=== PATIENT | male | born 1950 | race Caucasian/White ===

== ENCOUNTER 2017-05-14 10:13 | Inpatient (IN) | payer MEDICARE, BC ==
[~2017-05-14] VITALS: Ht 177.8 cm; Wt 119.1 kg
[2017-05-14] VITALS (9 sets, daily range): BP systolic 112–156; BP diastolic 58–86; PULSE 79–100; RESP 12–22; TEMP 96.5–98.4; O2SAT 94–99
[~2017-05-14 10:13] MED LIST: ASPI325T PO; CELE200 PO; CLOP75 PO; GLIM4TAB PO; HYZA100T2 PO; JANU50TA9 PO; METO25 PO; VYTO10TA35 PO
[2017-05-14] MEDS ORDERED: SODIUM CHLORIDE 0.9% FLUSH 10 ML FLUSH IVF PRN (10:45)
[2017-05-14] MEDS ORDERED: PANTOPRAZOLE SODIUM 40 MG VIAL IVP ONE (10:45)
--- NOTE | 2017-05-14 10:52 | PD ---
HPI Chief Complaint: Bleeding Time Seen by Provider: 10:50 Travel History International Travel<30 days: No Contact w/Intl Traveler<30days: No Traveled to known affect area: No History of Present Illness HPI 66-year-old male with history of GI bleeding, sees Dr. Vicente, anemia, presents to the ER today sent in by his physicians at the [place] because his hemoglobin was 5 today. He has been having dyspnea on exertion and general weakness. He has been having black stools. He denies any vomiting, or other symptoms. Modifying Factors: None Associated Signs & Symptoms: GI bleed, anemia Risk Factors: Anemia PFSH Past Medical History Blood Disorders: No Heart Rhythm Problems: No Cancer: No Cardiovascular Problems: Yes Chest Pain: Yes Congestive Heart Failure: No Diabetes: Yes Endocrine: Yes Genitourinary: No Immune Disorder: No Musculoskeletal: No Neurologic: No Psychiatric: No Reproductive: No Respiratory: No Thyroid Disease: No ?: Not Social History Tobacco Use: No Substance Use: No Allergies-Medications (Allergen,Severity, Reaction): Coded Allergies: acetaminophen (Unverified Allergy, Unknown, 01/25/17) aspirin (Unverified Allergy, Unknown, 01/25/17) blue dye (Unverified Allergy, Unknown, 01/25/17) latex (Unverified Allergy, Unknown, 01/25/17) oxycodone (Unverified Allergy, Unknown, 01/25/17) Uncoded Allergies: CHESTNUTS (Allergy, Unknown, 01/06/11) Reported Meds & Prescriptions Reported Meds & Active Scripts Active Reported Cymbalta DR (Duloxetine HCl) 60 Mg Capdr 60 Mg PO DAILY Aspirin 81 Mg Chew 81 Mg CHEW DAILY Losartan-Hydrochlorothiazide 100-12.5 Mg Tab 1 Tab PO DAILY Vytorin (Ezetimibe-Simvastatin) 10-40 Mg Tab 1 Tab PO HS Metoprolol Tartrate 25 Mg Tab 25 Mg PO BID Celebrex (Celecoxib) 200 Mg Cap 200 Mg PO DAILY Glimepiride 4 Mg Tab 6 Mg PO DAILY Take with breakfast or first main meal Janumet (Sitagliptin-Metformin) 50-1,000 Mg Tab 1 Tab PO BID Review of Systems Except as stated in HPI: all other systems reviewed are Neg Physical Exam Narrative GENERAL: Well-developed elderly white male patient currently in mild distress. Awake and oriented 3. SKIN: Focused skin assessment warm/dry. HEAD: Atraumatic. Normocephalic. EYES: Pupils equal and round. No scleral icterus. No injection or drainage. ENT: No nasal bleeding or discharge. Mucous membranes pink and moist. NECK: Trachea midline. No JVD. CARDIOVASCULAR: Regular rate and rhythm. No murmur appreciated. RESPIRATORY: No accessory muscle use. Clear to auscultation. Breath sounds equal bilaterally. RECTAL EXAM: No masses or tenderness, stool is dark. Hemoccult positive. GASTROINTESTINAL: Abdomen soft, non-tender, nondistended. Hepatic and splenic margins not palpable. MUSCULOSKELETAL: No obvious deformities. No clubbing. No cyanosis. No edema. NEUROLOGICAL: Awake and alert. No obvious cranial nerve deficits. Motor grossly within normal limits. Normal speech. PSYCHIATRIC: Appropriate mood and affect; insight and judgment normal. Data Data Last Documented VS Vital Signs Date Time Temp Pulse Resp B/P (MAP) Pulse Ox O2 Delivery O2 Flow Rate FiO2 05/14/17 10:40 98 Room Air 05/14/17 10:31 98.3 81 22 120/71 (87) Orders Orders Complete Blood Count With Diff (05/14/17 10:42) Prothrombin Time / Inr (Pt) (05/14/17 10:42) Act Partial Throm Time (Ptt) (05/14/17 10:42) Type And Screen (05/14/17 10:42) Comprehensive Metabolic Panel (05/14/17 10:45) Ecg Monitoring (05/14/17 10:45) Iv Access Insert/Monitor (05/14/17 10:45) Oximetry (05/14/17 10:45) Pantoprazole Inj (Protonix Inj) (05/14/17 10:45) Sodium Chloride 0.9% Flush (Ns Flush) (05/14/17 10:45) Red Blood Cells (Rbc) (05/14/17 11:25) Blood Product Administration (05/14/17 11:25) Sodium Chlor 0.9% 250 Ml Inj (Ns 250 Ml (05/14/17 11:30) Admit Order (Ed Use Only) (05/14/17 12:44) Labs Laboratory Tests Test 05/14/17 11:00 White Blood Count 3.4 TH/MM3 Red Blood Count 2.17 MIL/MM3 Hemoglobin 5.1 GM/DL Hematocrit 16.5 % Mean Corpuscular Volume 75.8 FL Mean Corpuscular Hemoglobin 23.4 PG Mean Corpuscular Hemoglobin Concent 30.9 % Red Cell Distribution Width 23.7 % Platelet Count 83 TH/MM3 Mean Platelet Volume 8.6 FL Neutrophils (%) (Auto) 62.2 % Lymphocytes (%) (Auto) 25.3 % Monocytes (%) (Auto) 8.3 % Eosinophils (%) (Auto) 2.9 % Basophils (%) (Auto) 1.3 % Neutrophils # (Auto) 2.1 TH/MM3 Lymphocytes # (Auto) 0.9 TH/MM3 Monocytes # (Auto) 0.3 TH/MM3 Eosinophils # (Auto) 0.1 TH/MM3 Basophils # (Auto) 0.0 TH/MM3 CBC Comment AUTO DIFF Differential Comment AUTO DIFF CONFIRMED Platelet Estimate LOW Platelet Morphology Comment NORMAL Prothrombin Time 11.1 SEC Prothromb Time International Ratio 1.1 RATIO Activated Partial Thromboplast Time 21.9 SEC Blood Urea Nitrogen 29 MG/DL Creatinine 1.41 MG/DL Random Glucose 347 MG/DL Total Protein 7.0 GM/DL Albumin 3.5 GM/DL Calcium Level 8.6 MG/DL Alkaline Phosphatase 99 U/L Aspartate Amino Transf (AST/SGOT) 16 U/L Alanine Aminotransferase (ALT/SGPT) 18 U/L Total Bilirubin 0.5 MG/DL Sodium Level 142 MEQ/L Potassium Level 4.0 MEQ/L Chloride Level 107 MEQ/L Carbon Dioxide Level 26.1 MEQ/L Anion Gap 9 MEQ/L Estimat Glomerular Filtration Rate 50 ML/MIN MDM Medical Decision Making Medical Screen Exam Complete: Yes Emergency Medical Condition: Yes Medical Record Reviewed: Yes Interpretation(s) Laboratory Tests Test 05/14/17 11:00 White Blood Count 3.4 TH/MM3 (4.0-11.0) Red Blood Count 2.17 MIL/MM3 (4.50-5.90) Hemoglobin 5.1 GM/DL (13.0-17.0) Hematocrit 16.5 % (39.0-51.0) Mean Corpuscular Volume 75.8 FL (80.0-100.0) Mean Corpuscular Hemoglobin 23.4 PG (27.0-34.0) Mean Corpuscular Hemoglobin Concent 30.9 % (32.0-36.0) Red Cell Distribution Width 23.7 % (11.6-17.2) Platelet Count 83 TH/MM3 (150-450) Monocytes (%) (Auto) 8.3 % (0.0-8.0) Lymphocytes # (Auto) 0.9 TH/MM3 (1.0-4.8) Platelet Estimate LOW (NORMAL) Activated Partial Thromboplast Time 21.9 SEC (24.3-30.1) Blood Urea Nitrogen 29 MG/DL (7-18) Creatinine 1.41 MG/DL (0.60-1.30) Random Glucose 347 MG/DL (74-106) Estimat Glomerular Filtration Rate 50 ML/MIN (>89) Differential Diagnosis GI bleed/severe anemia Narrative Course Lab work shows significant anemia and 2 units of PRBCs been ordered for the patient. Protonix has been ordered for the patient to the patient is Hemoccult positive, suspected GI bleeding. Case is discussed with Dr. Cardenas for admission. HemaPrompt Point of Care Internal Pos. & Neg. Controls: Passed Fecal Specimen Occult Blood: Positive Diagnosis Primary Impression: GI bleed Additional Impression: Anemia Admitting Information Admitting Physician Requests: Admit Moon Vasquez MD May 14, 2017 10:52
[2017-05-14] MEDS ORDERED: VYTO10TA9 PO (11:14)
[2017-05-14] MEDS ORDERED: ASPI-516 CHEW (11:14)
[2017-05-14] MEDS ORDERED: CYMB60CA PO (11:14)
[2017-05-14] MEDS ORDERED: GLIM4TAB PO (11:14)
[2017-05-14] MEDS ORDERED: METO25TA3 PO (11:14)
[2017-05-14] MEDS ORDERED: CELE200C PO (11:14)
[2017-05-14] MEDS ORDERED: LOSA100T3 PO (11:14)
[2017-05-14] MEDS ORDERED: JANU50TA8 PO (11:14)
[2017-05-14 11:18] LABS: AUTOMATED NEUTROPHIL # 2.1 TH/MM3 (1.8-7.7); BASOPHIL % 1.3 % (0.0-2.0); EOSINOPHIL # 0.1 TH/MM3 (0-0.4); EOSINOPHIL % 2.9 % (0.0-4.0); LYMPH % 25.3 % (9.0-44.0); LYMPHOCYTE # 0.9 TH/MM3 (1.0-4.8); MEAN CELL VOLUME 75.8 FL (80.0-100.0); MEAN CORPUSCULAR HEMOGLOBIN 23.4 PG (27.0-34.0); MEAN CORPUSCULAR HGB CONC 30.9 % (32.0-36.0); MONO % 8.3 % (0.0-8.0); NEUT % 62.2 % (16.0-70.0); PLATELET COUNT 83 TH/MM3 (150-450); RED BLOOD COUNT 2.17 MIL/MM3 (4.50-5.90); RED CELL DISTRIBUTION WIDTH 23.7 % (11.6-17.2); WHITE BLOOD COUNT 3.4 TH/MM3 (4.0-11.0)
[2017-05-14 11:20] LABS: HEMO FLAGS AUTO DIFF
[2017-05-14 11:23] LABS: APTT (PATIENT) 21.9 SEC (24.3-30.1); INTERNATIONAL NORMALIZED RATIO 1.1 RATIO; PROTHROMBIN TIME - PATIENT 11.1 SEC (9.8-11.6)
[2017-05-14 11:24] LABS: HEMATOCRIT 16.5 % (39.0-51.0)
[2017-05-14] MEDS ORDERED: SODIUM CHLOR 0.9% 250 ML INJ 250 ML IV ONE (11:30)
[2017-05-14 11:44] LABS: ANION GAP 9 MEQ/L (5-15); AST (GOT) 16 U/L (15-37); BICARBONATE 26.1 MEQ/L (21.0-32.0); BLOOD UREA NITROGEN 29 MG/DL (7-18); CHLORIDE 107 MEQ/L (98-107); GLOMERULAR FILTRATION RATE 50 ML/MIN (>89); SODIUM (NA) 142 MEQ/L (136-145)
[2017-05-14 11:45] LABS: ALT (GPT) 18 U/L (12-78)
[2017-05-14 11:47] LABS: ALKALINE PHOSPHATASE 99 U/L (45-117); TOTAL BILIRUBIN ADULT 0.5 MG/DL (0.2-1.0)
[2017-05-14 11:51] LABS: PLATELET ESTIMATE SMEAR LOW (NORMAL); PLATELET MORPHOLOGY NORMAL (NORMAL); SCAN/DIFF AUTO DIFF CONFIRMED
[2017-05-14] MEDS ORDERED: SODIUM CHLOR 0.9% 1000 ML INJ 1,000 ML IV SCH (13:07)
[2017-05-14] MEDS ORDERED: DEXTROSE 50% IN WATER 50 ML VIAL(D50) IV PUSH PRN (13:15)
[2017-05-14] MEDS ORDERED: LORazepam 2 MG TAB PO PRN (13:15)
[2017-05-14] MEDS ORDERED: FLUMAZENIL 0.5 MG/5 ML VIAL IV PUSH PRN (13:15)
[2017-05-14] MEDS ORDERED: LORazepam 1 MG TAB PO PRN (13:15)
[2017-05-14] MEDS ORDERED: GLUCAGON 1 MG/ML VIAL OTHER PRN (13:15)
[2017-05-14] MEDS ORDERED: LORazepam 2 MG/ML VIAL IV PUSH PRN ×4 (13:15)
[2017-05-14] MEDS ORDERED: ONDANSETRON HCL 4 MG/2 ML VIAL IV PUSH PRN (13:15)
[2017-05-14] MEDS ORDERED: SODIUM CHLORIDE 0.9% FLUSH 10 ML FLUSH IV FLUSH PRN (13:15)
--- NOTE | 2017-05-14 13:26 | HHI.HP ---
[facility] Len Aponte, DO Admission Diagnosis GI bleed/severe anemia Diagnoses: Travel History International Travel<30 Days: No Contact w/Intl Traveler <30 Da: No Traveled to Known Affected Are: No History of Present Illness 66-year-old male presents to the ED after receiving a call from his doctor's office for a hemoglobin of 5.1. The patient reports he has had black stools intermittently since November and frequently experiences shortness of breath and lightheadedness especially upon standing. He has a colonoscopy scheduled for . The patient has a past medical history significant for severe coronary artery disease, status post multiple angioplasty with stenting, hypertension, hyperlipidemia, peripheral neuropathy and type 2 diabetes mellitus (not on insulin). Lab values significant for a BUN/creatinine of 29/1.41 (unknown baseline). H&H 5.1/16.5. Review of Systems Denies fever or chills Denies blurry vision, otorrhea, rhinorrhea Denies sore throat and cough No chest pain, palpitations, positive shortness of breath No abdominal pain Denies constipation/diarrhea/nausea/vomiting Denies muscle pain/weakness No rashes Past Family Social History Past Medical History Coronary artery disease Hypertension Peripheral neuropathy Hyperlipidemia Type 2 diabetes mellitus Past Surgical History Cardiac catheterization with stent placement in 1987, 1992, 2000, 2010 Tonsillectomy Facial reconstruction status post trauma Right ankle tendon reattachment Arthroscopic surgery left knee Colonoscopy in 2001, 2010 with polyp removal and no signs of active bleeding Reported Medications Reported Meds & Active Scripts Active Reported Cymbalta DR (Duloxetine HCl) 60 Mg Capdr 60 Mg PO DAILY Aspirin 81 Mg Chew 81 Mg CHEW DAILY Losartan-Hydrochlorothiazide 100-12.5 Mg Tab 1 Tab PO DAILY Vytorin (Ezetimibe-Simvastatin) 10-40 Mg Tab 1 Tab PO HS Metoprolol Tartrate 25 Mg Tab 25 Mg PO BID Celebrex (Celecoxib) 200 Mg Cap 200 Mg PO DAILY Glimepiride 4 Mg Tab 6 Mg PO DAILY Take with breakfast or first main meal Janumet (Sitagliptin-Metformin) 50-1,000 Mg Tab 1 Tab PO BID Allergies: Coded Allergies: acetaminophen (Unverified Allergy, Unknown, 01/25/17) aspirin (Unverified Allergy, Unknown, 01/25/17) blue dye (Unverified Allergy, Unknown, 01/25/17) latex (Unverified Allergy, Unknown, 01/25/17) oxycodone (Unverified Allergy, Unknown, 01/25/17) Uncoded Allergies: CHESTNUTS (Allergy, Unknown, 01/06/11) Family History Father of [place] at age 36. Mom with CAD, diabetes mellitus. Social History Quit smoking in 1987. Drinks approximately 3-4 large glasses of vodka per day. Denies marijuana, illicit drugs. Physical Exam Vital Signs Vital Signs Date Time Temp Pulse Resp B/P (MAP) Pulse Ox O2 Delivery O2 Flow Rate FiO2 05/14/17 10:40 98 Room Air 05/14/17 10:31 98.3 81 22 120/71 (87) 05/14/17 10:17 98.4 91 12 156/86 (109) 99 Physical Exam GENERAL: male sitting up in bed SKIN: No rashes, ecchymoses or lesions. Cool and dry. HEAD: Atraumatic. Normocephalic. No temporal or scalp tenderness. EYES: Pupils equal round and reactive. Extraocular motions intact. No scleral icterus. No injection or drainage. ENT: Nose without bleeding, purulent drainage or septal hematoma. Throat without erythema, tonsillar hypertrophy or exudate. Uvula midline. Airway patent. NECK: Trachea midline. No JVD or lymphadenopathy. Supple, nontender, no meningeal signs. CARDIOVASCULAR: Regular rate and rhythm without murmurs, gallops, or rubs. RESPIRATORY: Clear to auscultation. Breath sounds equal bilaterally. No wheezes , rales, or rhonchi. GASTROINTESTINAL: Abdomen soft, non-tender, nondistended. No hepato-splenomegaly , or palpable masses. No guarding. MUSCULOSKELETAL: Extremities without clubbing, cyanosis, or edema. No joint tenderness, effusion, or edema noted. No calf tenderness. NEUROLOGICAL: Awake and alert. Cranial nerves II through XII intact. Motor and sensory grossly within normal limits. Normal speech. Laboratory Laboratory Tests Test 05/14/17 11:00 White Blood Count 3.4 Red Blood Count 2.17 Hemoglobin 5.1 Hematocrit 16.5 Mean Corpuscular Volume 75.8 Mean Corpuscular Hemoglobin 23.4 Mean Corpuscular Hemoglobin Concent 30.9 Red Cell Distribution Width 23.7 Platelet Count 83 Mean Platelet Volume 8.6 Neutrophils (%) (Auto) 62.2 Lymphocytes (%) (Auto) 25.3 Monocytes (%) (Auto) 8.3 Eosinophils (%) (Auto) 2.9 Basophils (%) (Auto) 1.3 Neutrophils # (Auto) 2.1 Lymphocytes # (Auto) 0.9 Monocytes # (Auto) 0.3 Eosinophils # (Auto) 0.1 Basophils # (Auto) 0.0 CBC Comment AUTO DIFF Differential Comment AUTO DIFF CONFIRMED Platelet Estimate LOW Platelet Morphology Comment NORMAL Prothrombin Time 11.1 Prothromb Time International Ratio 1.1 Activated Partial Thromboplast Time 21.9 Blood Urea Nitrogen 29 Creatinine 1.41 Random Glucose 347 Total Protein 7.0 Albumin 3.5 Calcium Level 8.6 Alkaline Phosphatase 99 Aspartate Amino Transf (AST/SGOT) 16 Alanine Aminotransferase (ALT/SGPT) 18 Total Bilirubin 0.5 Sodium Level 142 Potassium Level 4.0 Chloride Level 107 Carbon Dioxide Level 26.1 Anion Gap 9 Estimat Glomerular Filtration Rate 50 Result Diagram: 05/14/17 1100 05/14/17 1100 Caprini VTE Risk Assessment Caprini VTE Risk Assessment: Mod/High Risk (score >= 2) Caprini Risk Assessment Model Point Value = 1 Point Value = 2 Point Value = 3 Point Value = 5 Age 41-60 Minor surgery BMI > 25 kg/m2 Swollen legs Varicose veins or History of unexplained or recurrent spontaneous Oral contraceptives or hormone replacement Sepsis (< 1 month) Serious lung disease, including pneumonia (< 1 month) Abnormal pulmonary function Acute myocardial infarction Congestive heart failure (< 1 month) History of inflammatory bowel disease Medical patient at bed rest Age 61-74 Arthroscopic surgery Major open surgery (> 45 min) Laparoscopic surgery (> 45 min) Malignancy Confined to bed (> 72 hours) Immobilizing plaster cast Central venous access Age >= 75 History of VTE Family history of VTE Factor V Leiden Prothrombin [id number] Lupus anticoagulant Anticardiolipin antibodies Elevated serum homocysteine Heparin-induced thrombocytopenia Other congenital or acquired thrombophilia Stroke (< 1 month) Elective arthroplasty Hip, pelvis, or leg fracture Acute spinal cord injury (< 1 month) Prophylaxis Regimen Total Risk Factor Score Risk Level Prophylaxis Regimen 0-1 Low Early ambulation 2 Moderate Order ONE of the following: *Sequential Compression Device (SCD) *Heparin 5000 units SQ BID 3-4 Higher Order ONE of the following medications: *Heparin 5000 units SQ TID *Enoxaparin/Lovenox 40 mg SQ daily (WT < 150 kg, CrCl > 30 mL/min) *Enoxaparin/Lovenox 30 mg SQ daily (WT < 150 kg, CrCl > 10-29 mL/min) *Enoxaparin/Lovenox 30 mg SQ BID (WT < 150 kg, CrCl > 30 mL/min) AND/OR *Sequential Compression Device (SCD) 5 or more Highest Order ONE of the following medications: *Heparin 5000 units SQ TID (Preferred with Epidurals) *Enoxaparin/Lovenox 40 mg SQ daily (WT < 150 kg, CrCl > 30 mL/min) *Enoxaparin/Lovenox 30 mg SQ daily (WT < 150 kg, CrCl > 10-29 mL/min) *Enoxaparin/Lovenox 30 mg SQ BID (WT < 150 kg, CrCl > 30 mL/min) AND *Sequential Compression Device (SCD) Assessment and Plan Assessment and Plan 66-year-old male with a past medical history significant for hypertension, hyperlipidemia, peripheral neuropathy, coronary artery disease status post multiple angioplasties and stent placements and type 2 diabetes mellitus presents with severe anemia and suspected GI bleed. 1. Severe anemia/GI bleed H&H 5.1/16.5 Transfuse 2 units PRBCs Hemoccult-positive in the ED Nothing by mouth IV Protonix Serial H&H, monitor for signs of bleeding Gastroenterology consulted, appreciate recommendations 2. Hypertension Continue home medications 3. CAD status post multiple stent placements Patient anticoagulated only on aspirin Holding aspirin secondary to GI bleed 4. Hyperlipidemia Continue home statin 5. Peripheral neuropathy Continue Cymbalta 6. Diabetes mellitus Controlled with oral medication Holding anti-hyperglycemics SSI 7. Renal insufficiency Creatinine 1.41, patient's baseline unknown IV fluids Monitor renal function Avoid nephrotoxic agents 8. Alcohol abuse Multivitamin/thiamine/folate CIWA protocol FEN NPO NS at 125 cc/hr Electrolytes: monitor and replete prn Holding pharmacologic anticoagulation for severe anemia and possible GI bleed Case discussed with ER physician at length Physician Certification 2 Midnight Certification Type: Admission for Inpatient Services Order for Inpatient Services The services are ordered in accordance with Medicare regulations or non- Medicare payer requirements, as applicable. In the case of services not specified as inpatient-only, they are appropriately provided as inpatient services in accordance with the 2-midnight benchmark. Estimated LOS (days): 2 2 days is the estimated time the patient will need to remain in the hospital, assuming treatment plan goals are met and no additional complications. Post-Hospital Plan: Not yet determined Suzanne Cardenas MD May 14, 2017 13:26
[2017-05-14] MEDS: INSULIN ASPART SUPPLEMENTAL SCALE SQ SCH ×2 (17:20→21:16)
[2017-05-14] MEDS: PRAVASTATIN SOD 80 MG TAB PO SCH (19:39)
[2017-05-14] MEDS: EZETIMIBE 10 MG TAB PO SCH (19:39)
[2017-05-14] MEDS: METOPROLOL TARTRATE 25 MG TAB PO SCH (19:39)
[2017-05-14] MEDS: SODIUM CHLORIDE 0.9% FLUSH 10 ML FLUSH IV FLUSH SCH (19:40)
[2017-05-14] MEDS: MULTIVITAMIN INJ 10 ML, FOLIC ACID INJ 1 MG in SODIUM CHLORID 0.9% 500 ML INJ 500 ML IV SCH (19:40)
[2017-05-14] MEDS: THIAMINE INJ 100 MG in SODIUM CHLORIDE 0.9% INJ 100 ML IV SCH (19:40)
[2017-05-14] MEDS ORDERED: NON-FORMULARY DRUG (Ezetimibe-Simvastatin (Vytorin) 1 TAB) PO SCH (21:00)
[2017-05-15] VITALS (12 sets, daily range): BP systolic 117–139; BP diastolic 62–79; PULSE 67–98; RESP 18–20; TEMP 96.3–98.7; O2SAT 95–98
[2017-05-15 00:43] LABS: REVIEW FLAG AUTO DIFF
[2017-05-15] MEDS ORDERED: SODIUM CHLOR 0.9% 250 ML INJ 250 ML IV ONE (01:30)
[2017-05-15] MEDS ORDERED: FUROSEMIDE 20 MG/2 ML VIAL IV PUSH PRN (01:30)
[2017-05-15] MEDS: INSULIN ASPART SUPPLEMENTAL SCALE SQ SCH ×4 (08:00→19:33)
[2017-05-15] MEDS: DULoxetine HCl DR 60 MG CAP PO SCH (09:00)
[2017-05-15] MEDS ORDERED: NON-FORMULARY DRUG (Losartan-Hydrochlorothiazide 1 TAB) PO SCH (09:00)
[2017-05-15] MEDS: SODIUM CHLORIDE 0.9% FLUSH 10 ML FLUSH IV FLUSH SCH (09:00)
[2017-05-15] MEDS: HYDROCHLOROTHIAZIDE 12.5 MG CAP PO SCH (09:46)
[2017-05-15] MEDS: METOPROLOL TARTRATE 25 MG TAB PO SCH ×2 (09:48→19:30)
[2017-05-15] MEDS: PANTOPRAZOLE SODIUM 40 MG VIAL IV PUSH SCH (09:48)
[2017-05-15] MEDS: LOSARTAN 50 MG TAB PO SCH (09:48)
[2017-05-15 11:20] LABS: AUTOMATED NEUTROPHIL # 2.7 TH/MM3 (1.8-7.7); BASOPHIL # 0.1 TH/MM3 (0-0.2); BASOPHIL % 1.2 % (0.0-2.0); EOSINOPHIL # 0.2 TH/MM3 (0-0.4); EOSINOPHIL % 4.2 % (0.0-4.0); HEMATOCRIT 25.2 % (39.0-51.0); LYMPH % 22.5 % (9.0-44.0); MEAN CELL VOLUME 79.4 FL (80.0-100.0); MEAN CORPUSCULAR HEMOGLOBIN 26.3 PG (27.0-34.0); MEAN CORPUSCULAR HGB CONC 33.2 % (32.0-36.0); NEUT % 64.1 % (16.0-70.0); PLATELET COUNT 90 TH/MM3 (150-450); RED BLOOD COUNT 3.17 MIL/MM3 (4.50-5.90); RED CELL DISTRIBUTION WIDTH 22.8 % (11.6-17.2); WHITE BLOOD COUNT 4.3 TH/MM3 (4.0-11.0)
[2017-05-15 11:22] LABS: HEMO FLAGS AUTO DIFF
[2017-05-15 11:40] LABS: BICARBONATE 27.3 MEQ/L (21.0-32.0); POTASSIUM 3.8 MEQ/L (3.5-5.1)
--- NOTE | 2017-05-15 11:51 | MB ---
cc: JAVIER PUCKETT M.D., STEVEN C. DO AGNONE, LOUIS M. MD DATE OF : 1950 DATE OF CONSULTATION: 05/15/2017 REASON FOR CONSULTATION: Anemia and GI bleeding HISTORY OF PRESENT ILLNESS: The patient is a 66-year-old white male I was asked to see for further evaluation and management of anemia and GI bleeding. The patient has seen Dr. Vicente six days ago in the office. He was found to have anemia with hemoccult positive dark stool. The lab called me yesterday morning with a hemoglobin of 5.1 measured May 13. I advised the patient to come into the hospital for transfusion. I was called to see him. He had been having some dyspnea on exertion. Since arriving to the hospital, he has been bedridden and has received four units of packed red blood cells. He feels no different but he has not been walking around. The stools have been hard and dark as he has been taking iron sulfate. The stool was found to be positive again for occult blood. He has a history of polyps. His last colonoscopy had been performed in 2010. He has a history of esophagitis. He takes a baby aspirin a day and had been taking Celebrex until six days ago at which point it was stopped. PAST MEDICAL HISTORY: 1. Coronary artery disease. 2. Hypertension. 3. Peripheral neuropathy. 4. Hyperlipidemia. 5. Type 2 diabetes. PAST SURGICAL HISTORY: 1. Heart catheterization with stents in 1987, 1992, 2000 and 2010. 2. He has undergone tonsillectomy. 3. Facial reconstruction surgery for trauma. 4. Right ankle tendon reattachment. 5. Arthroscopic surgery on the left knee. 6. Colonoscopy in 2010 with a panendoscopy at that same time. MEDICATIONS ON ADMISSION 1. Cymbalta. 2. Baby aspirin 3. Losartan with hydrochlorothiazide. 4. Vytorin 5. Metoprolol 6. Celebrex, stopped six days earlier. 7. Glimepiride. 8. Janumet. ALLERGIES: ACETAMINOPHEN ASPIRIN BLUE DYE LATEX OXYCODONE FAMILY HISTORY Heart disease and diabetes. SOCIAL HISTORY: Tobacco use, he quit in 1987. Alcohol use, three or four glasses of vodka per day. REVIEW OF SYSTEMS He has had no recent headaches. No history of strokes or seizures. No vision difficulties. No dysphagia. No heartburn symptoms, unless he eats very late at night. No abdominal pain. No nausea, vomiting, no fever or chills. No chest pain. No palpitatons. Mild dyspnea on exertion. No claudication, no urinary symptoms, no history of pancreatic disease or liver disease. PHYSICAL EXAMINATION: His weight is stable on physical examination at 122 kg. VITAL SIGNS: Temperature 96.8, pulse 78, respiratory rate 18, blood pressure 139/79. GENERAL: He is alert, oriented x3. HEENT: Anicteric. Extraocular movements intact. I appreciate no submandibular, cervical, supraclavicular, axillary, epitrochlear adenopathy. LUNGS: Clear to auscultation. HEART: Regular rate and rhythm. No gross murmur or gallop. ABDOMEN: Good bowel sounds with no appreciable bruit. The abdomen is soft, nontender. No masses or hepatosplenomegaly are noted. EXTREMITIES: No pde8, Dupuytren's contractures or palmar erythema. LABORATORY STUDIES: Yesterday, white count 3.4, hemoglobin 5.1, MCV 75.8, platelet count 83,000. This morning after receiving two units of packed red blood cells hemoglobin was 6.1. He has since received two more units of packed red blood cells, repeat count is pending. Sodium yesterday was 142 with a potassium of 4.0, BUN 29, creatinine 1.41, liver enzymes are all normal. Albumin 3.5. INR 1.1. IMPRESSION: 1. Anemia with hemoccult positive stool in this patient with a history of polyps. He has been taking baby aspirin and had been taking Celebrex and who drinks 3-4 glasses per vodka per day and has a history of reflux esophagitis. He was scheduled to undergo panendoscopy and colonoscopy May 23, but the rate at which his hemoglobin is dropping, we decided to proceed with endoscopy and colonoscopy here in the hospital. We discussed the procedures, including potential risks of medication reaction, bleeding, perforation and a small chance of missing a lesion. If no abnormalities are found, small bowel capsule endoscopy will be recommended subsequently. 2. His laboratory studies show pancytopenia. I appreciate no stigmata of chronic liver disease on physical examination. Hematology evaluation may need to be considered. MD LEMUEL Olivarez/ANCELMO /11:14 AM /11:32 AM
--- NOTE | 2017-05-15 12:01 | HHI.DS ---
Discharge Summary Admission Date May 14, 2017 at 12:46 Discharge Date: May 15, 2017 Admitting Diagnosis GI bleed/severe anemia (1) GI bleed ICD Code: K92.2 - Gastrointestinal hemorrhage, unspecified Status: Acute (2) Anemia ICD Code: D64.9 - Anemia, unspecified Status: Acute Procedures None Brief History - From Admission 66-year-old male presents to the ED after receiving a call from his doctor's office for a hemoglobin of 5.1. The patient reports he has had black stools intermittently since November and frequently experiences shortness of breath and lightheadedness especially upon standing. He has a colonoscopy scheduled for . The patient has a past medical history significant for severe coronary artery disease, status post multiple angioplasty with stenting, hypertension, hyperlipidemia, peripheral neuropathy and type 2 diabetes mellitus (not on insulin). Lab values significant for a BUN/creatinine of 29/1.41 (unknown baseline). H&H 5.1/16.5. CBC/BMP: 05/15/17 1102 05/15/17 1102 Significant Findings Laboratory Tests Test 05/14/17 11:00 05/15/17 00:27 05/15/17 11:02 White Blood Count 3.4 TH/MM3 (4.0-11.0) Red Blood Count 2.17 MIL/MM3 (4.50-5.90) 3.17 MIL/MM3 (4.50-5.90) Hemoglobin 5.1 GM/DL (13.0-17.0) 6.1 GM/DL (13.0-17.0) 8.4 GM/DL (13.0-17.0) Hematocrit 16.5 % (39.0-51.0) 19.0 % (39.0-51.0) 25.2 % (39.0-51.0) Mean Corpuscular Volume 75.8 FL (80.0-100.0) 79.4 FL (80.0-100.0) Mean Corpuscular Hemoglobin 23.4 PG (27.0-34.0) 26.3 PG (27.0-34.0) Mean Corpuscular Hemoglobin Concent 30.9 % (32.0-36.0) Red Cell Distribution Width 23.7 % (11.6-17.2) 22.8 % (11.6-17.2) Platelet Count 83 TH/MM3 (150-450) 90 TH/MM3 (150-450) Monocytes (%) (Auto) 8.3 % (0.0-8.0) Lymphocytes # (Auto) 0.9 TH/MM3 (1.0-4.8) Platelet Estimate LOW (NORMAL) Activated Partial Thromboplast Time 21.9 SEC (24.3-30.1) Blood Urea Nitrogen 29 MG/DL (7-18) 19 MG/DL (7-18) Creatinine 1.41 MG/DL (0.60-1.30) Random Glucose 347 MG/DL (74-106) 382 MG/DL (74-106) Estimat Glomerular Filtration Rate 50 ML/MIN (>89) 57 ML/MIN (>89) Eosinophils (%) (Auto) 4.2 % (0.0-4.0) Sodium Level 135 MEQ/L (136-145) Hospital Course Mr. Walden is a 66-year-old male. He was admitted secondary to GI bleed. His history has been recurrent episodes of melena since November of this year. He says he's been having persistent melena since about March. His bleed appears to be a chronic slow bleed. He is scheduled for EGD in 1 week. Plan is to scope him in one week rather than EGD here and this is the patient's preference also. Post transfusion his hemoglobin is 8.4. There may be some dilutional effect related to this as he has had IV fluids running. At this point is medically stable for discharge to home. Outpatient follow-up with GI. Pt Condition on Discharge: Stable Discharge Disposition: Discharge Home Discharge Time: <= 30 minutes Discharge Instructions DIET: Follow Instructions for: Diabetic Diet Activities you can perform: Regular-No Restrictions Follow up Referrals: Gastroenterology - 1 Week PCP Follow-up - 2 Weeks Continued Medications: Duloxetine DR (Cymbalta DR) 60 Mg Capdr 60 MG PO DAILY, #30 CAP 0 Refills Ezetimibe-Simvastatin (Vytorin) 10-40 Mg Tab 1 TAB PO HS, #30 TAB 0 Refills Glimepiride (Glimepiride) 4 Mg Tab 6 MG PO DAILY for Blood Sugar Management, #30 TAB 0 Refills Take with breakfast or first main meal Losartan-Hydrochlorothiazide (Losartan-Hydrochlorothiazide) 100-12.5 Mg Tab 1 TAB PO DAILY for Blood Pressure Management, #30 TAB 0 Refills Metoprolol Tartrate (Metoprolol Tartrate) 25 Mg Tab 25 MG PO BID, #60 TAB 0 Refills Sitagliptin-Metformin (Janumet) 50-1,000 Mg Tab 1 TAB PO BID for Blood Sugar Management, #60 TAB 0 Refills Discontinued Medications: Aspirin (Aspirin) 81 Mg Chew 81 MG CHEW DAILY, TAB 0 Refills Celecoxib (Celebrex) 200 Mg Cap 200 MG PO DAILY for Pain Management, CAP 0 Refills Angelo Alvarenga MD May 15, 2017 12:01
[2017-05-15 12:09] LABS: OVALOCYTES 1+ (NORMAL); PLATELET ESTIMATE SMEAR LOW (NORMAL); PLATELET MORPHOLOGY NORMAL (NORMAL); SCAN/DIFF AUTO DIFF CONFIRMED
--- NOTE | 2017-05-15 13:01 | HHI.PR ---
Subjective Remarks No acute complaints from the patient. He says he does not have any evidence of further bleeding. Hemoglobin is up to 8.4 post transfusion. Symptoms of anemia have resolved. Plan for EGD/colonoscopy tomorrow. Objective Vital Signs Date Time Temp Pulse Resp B/P (MAP) Pulse Ox O2 Delivery O2 Flow Rate FiO2 05/15/17 08:00 96.8 78 18 139/79 (99) 96 05/15/17 08:00 87 05/15/17 07:19 96.3 77 20 124/75 96 05/15/17 04:00 97.2 92 18 123/62 (82) 98 05/15/17 03:30 98.6 88 20 128/75 95 05/15/17 02:55 98.7 71 20 126/70 95 05/15/17 00:00 97.1 98 18 121/62 (81) 98 05/14/17 20:17 83 05/14/17 20:00 96.5 100 18 132/69 (90) 97 05/14/17 18:02 96.9 95 18 118/58 (78) 96 05/14/17 17:47 97.9 86 18 112/59 05/14/17 15:25 96.8 79 18 119/61 (80) 94 05/14/17 15:20 96.8 79 18 119/61 (80) 94 05/14/17 14:53 97.0 80 19 118/70 95 05/14/17 14:52 I/O 05/14/17 05/14/17 05/14/17 05/15/17 05/15/17 05/15/17 07:00 15:00 23:00 07:00 15:00 23:00 Intake Total 2 ml 1153 ml 1220 ml 415 ml Output Total 450 ml Balance 2 ml 1153 ml 770 ml 415 ml Intake Oral 250 ml 240 ml IV Total 101 ml 540 ml Packed Cells 800 ml 400 ml 400 ml Blood Product IV Normal Saline Flush 2 ml 2 ml 40 ml 15 ml Output Urine Total 450 ml # Voids 1 3 Result Diagram: 05/15/17 1102 05/15/17 1102 Objective Remarks GENERAL: NAD, A&Ox3 HEAD: Normocephalic. NECK: Supple, trachea midline. No lymphadenopathy. EYES: No scleral icterus. No injection or drainage. CARDIOVASCULAR: Regular rate and rhythm without murmurs, gallops, or rubs. RESPIRATORY: Breath sounds equal bilaterally. No accessory muscle use. GASTROINTESTINAL: Abdomen soft, non-tender, nondistended. MUSCULOSKELETAL: No cyanosis, or edema. SKIN: Warm and dry. NEURO: No focal neurological deficitis. A/P Problem List: (1) GI bleed ICD Code: K92.2 - Gastrointestinal hemorrhage, unspecified Status: Acute (2) Anemia ICD Code: D64.9 - Anemia, unspecified Status: Acute Assessment and Plan Assessment and Plan 66-year-old male admitted secondary to GI bleed GI bleed Acute blood loss anemia Severe anemia Status post transfusion 05/14/17 Continue IV Protonix Nothing by mouth GI following EGD/colonoscopy tomorrow Follow H&H Hypertension Continue baseline treatments Follow blood pressures Coronary artery disease Aspirin on hold Hyperlipidemia Continue home statin Follow as an outpatient Peripheral neuropathy Continue Cymbalta Diabetes mellitus type 2 Follow blood sugars Insulin sliding scale Diabetic diet Chronic kidney disease Avoid nephrotoxins Monitor renal function Alcohol abuse Multivitamin/thiamine/folate [facility] protocol DVT Prophylaxis SCDs Angelo Alvarenga MD May 15, 2017 13:01
[2017-05-15] MEDS: MULTIVITAMIN INJ 10 ML, FOLIC ACID INJ 1 MG in SODIUM CHLORID 0.9% 500 ML INJ 500 ML IV SCH (15:47)
[2017-05-15] MEDS: THIAMINE INJ 100 MG in SODIUM CHLORIDE 0.9% INJ 100 ML IV SCH (18:09)
[2017-05-15] MEDS: PRAVASTATIN SOD 80 MG TAB PO SCH (19:30)
[2017-05-15] MEDS: EZETIMIBE 10 MG TAB PO SCH (19:30)
[2017-05-15 20:35] LABS: HEMATOCRIT 25.3 % (39.0-51.0); REVIEW FLAG FINAL
[2017-05-16] VITALS: BP 115/74; PULSE 68; RESP 20; TEMP 96.8; O2SAT 96
[2017-05-16] MEDS: SODIUM CHLORIDE 0.9% FLUSH 10 ML FLUSH IV FLUSH SCH ×2 (00:10→08:52)
[2017-05-16 00:57] LABS: HEMATOCRIT 23.8 % (39.0-51.0)
[2017-05-16 01:02] LABS: REVIEW FLAG FINAL
[2017-05-16 04:12] VITALS: PULSE 66
[2017-05-16 06:56] LABS: AUTOMATED NEUTROPHIL # 2.3 TH/MM3 (1.8-7.7); BASOPHIL # 0.1 TH/MM3 (0-0.2); BASOPHIL % 1.5 % (0.0-2.0); EOSINOPHIL # 0.2 TH/MM3 (0-0.4); EOSINOPHIL % 5.5 % (0.0-4.0); HEMATOCRIT 23.6 % (39.0-51.0); LYMPH % 25.1 % (9.0-44.0); MEAN CELL VOLUME 78.6 FL (80.0-100.0); MEAN CORPUSCULAR HEMOGLOBIN 25.9 PG (27.0-34.0); MEAN CORPUSCULAR HGB CONC 32.9 % (32.0-36.0); MONO % 7.9 % (0.0-8.0); PLATELET COUNT 88 TH/MM3 (150-450); RED CELL DISTRIBUTION WIDTH 23.2 % (11.6-17.2); WHITE BLOOD COUNT 3.8 TH/MM3 (4.0-11.0)
[2017-05-16 07:00] LABS: HEMO FLAGS AUTO DIFF
[2017-05-16 07:21] LABS: ALKALINE PHOSPHATASE 125 U/L (45-117); ALT (GPT) 28 U/L (12-78); ANION GAP 8 MEQ/L (5-15); AST (GOT) 54 U/L (15-37); BICARBONATE 26.1 MEQ/L (21.0-32.0); BLOOD UREA NITROGEN 15 MG/DL (7-18); CHLORIDE 105 MEQ/L (98-107); GLOMERULAR FILTRATION RATE 66 ML/MIN (>89); POTASSIUM 3.7 MEQ/L (3.5-5.1); SODIUM (NA) 139 MEQ/L (136-145)
[2017-05-16 08:00] VITALS: BP 122/77; PULSE 83; RESP 18; TEMP 97.3; O2SAT 97
[2017-05-16 08:34] LABS: OVALOCYTES 1+ (NORMAL); PLATELET ESTIMATE SMEAR LOW (NORMAL); PLATELET MORPHOLOGY NORMAL (NORMAL); SCAN/DIFF AUTO DIFF CONFIRMED
[2017-05-16] MEDS: LOSARTAN 50 MG TAB PO SCH ×2 (08:41→10:43)
[2017-05-16] MEDS: METOPROLOL TARTRATE 25 MG TAB PO SCH ×2 (08:41→10:43)
[2017-05-16] MEDS: HYDROCHLOROTHIAZIDE 12.5 MG CAP PO SCH ×2 (08:41→10:43)
[2017-05-16] MEDS: DULoxetine HCl DR 60 MG CAP PO SCH (08:41)
[2017-05-16] MEDS: PANTOPRAZOLE SODIUM 40 MG VIAL IV PUSH SCH (08:42)
[2017-05-16] MEDS: INSULIN ASPART SUPPLEMENTAL SCALE SQ SCH ×2 (08:46→12:00)
[2017-05-16] MEDS ORDERED: SODIUM CHLOR 0.9% 250 ML INJ 250 ML IV ONE (09:00)
--- NOTE | 2017-05-16 09:49 | GIPROC ---
[facility] [address] [facility]. [facility], [address] EGD PROCEDURE REPORT EXAM DATE: 05/16/2017 PATIENT NAME: Jordi Walden MR #: [id number] BIRTHDATE: 1950 ATTENDING: Nikhil Figueroa MD ORDER #: [id number] RESEARCH STAFF MEMBER: Placido Paula and Monse Ayala STATUS: inpatient INDICATIONS: The patient is a 66 yr old male here for an EGD due to Anemia with GI blood loss. PROCEDURE PERFORMED: EGD with duodenal polypectomy MEDICATIONS: Per Anesthesia. TOPICAL ANESTHETIC: none CONSENT: The patient understands the risks and benefits of the procedure and understands that these risks include, but are not limited to: sedation, allergic reaction, infection, perforation and/or bleeding. Alternative means of evaluation and treatment include, among others: physical exam, x-rays, and/or surgical intervention. The patient elects to proceed with this endoscopic procedure. medical equipment was checked for proper function. Hand hygiene and appropriate measures for infection prevention was taken. After the risks, benefits and alternatives of the procedure were thoroughly explained, Informed consent was verified, confirmed and timeout was successfully executed by the treatment team. The patient was anesthetized with topical anesthesia and the Pentax [id number] endoscope was introduced through the mouth and advanced to the 2nd portion of the duodenum . Retroflexion was performed and was normal The gastroscope was then slowly withdrawn and removed. A 3mm duodenal bulb polyp was removed with snare cautery. A 6mm firm, umbilicated proximal gastric polyp was noted and not removed. The esophagus and Z-line appeared normal. ADVERSE EVENTS: There were no complications. IMPRESSIONS: Small duodenal polyp; removed with snare cautery. 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 NL esophagus and Z-line. RECOMMENDATIONS: Continue acid suppresisant. We'll discuss and coordinate EUS/EMR of the gastric polyp PATIENT CONDITION: stable DISPOSITION: Inpatient REPEAT EXAM: To be scheduled Nikhil Figueroa MD eSigned: Nikhil Figueroa MD 05/16/2017 9:49 AM cc: Dr. Aponte PATIENT NAME: Jordi Walden MR#: [id number]
--- NOTE | 2017-05-16 09:54 | GIPROC ---
[facility] [address] [facility]. [facility], [address] COLONOSCOPY PROCEDURE REPORT EXAM DATE: 05/16/2017 PATIENT NAME: Jordi Walden MR #: [id number] BIRTHDATE: 1950 ENDOSCOPIST: Nikhil Figueroa MD ORDER #: [id number] FOREIGN BANKNOTE TELLER: Placido Paula and Monse Ayala STATUS: inpatient INDICATIONS: The patient is a 66 yr old male here for a colonoscopy due to anemia with GI blood loss. PROCEDURE PERFORMED: Colonoscopy with polypectomies MEDICATIONS: Per Anesthesia. PREP QUALITY: good ESTIMATED BLOOD LOSS: None CONSENT: The patient understands the risks and benefits of the procedure and understands that these risks include, but are not limited to: sedation, allergic reaction, infection, perforation and/or bleeding. Alternative means of evaluation and treatment include, among others: physical exam, x-rays, and/or surgical intervention. The patient elects to proceed with this endoscopic procedure. medical equipment was checked for proper function. Hand hygiene and appropriate measures for infection prevention was taken. After the risks, benefits and alternatives of the procedure were thoroughly explained, Informed consent was verified, confirmed and timeout was successfully executed by the treatment team. A digital exam was performed The Pentax [id number] endoscope was introduced through the anus and advanced to the cecum, which was identified by both the appendix and ileocecal valve. The instrument was then slowly withdrawn as the colon was fully examined. Mild sigmoid diverticulosis was noted. Small sigmoid and transverse colon polyps were removed with snare cautery. Retroflexion was performed and was normal The scope was then completely withdrawn from the patient and the procedure terminated. ADVERSE EVENTS: There were no complications. IMPRESSIONS: Two colon polyps; snared. Sigmoid diverticulosis RECOMMENDATIONS: 1. Await biopsy results. Biopsy results will not be ready for 7-10 days. If you don't hear from us in two weeks, call our office for results. 2. High fiber diet RECALL: Repeat colonoscopy in five years depending on polyp histology Nikhil Figueroa MD eSigned: Nikhil Figueroa MD 05/16/2017 9:54 AM cc: Dr. Aponte PATIENT NAME: Jordi Walden MR#: [id number]
--- NOTE | 2017-05-16 10:52 | HHI.DS ---
Discharge Summary Admission Date May 14, 2017 at 12:46 Discharge Date: May 16, 2017 Admitting Diagnosis GI bleed/severe anemia (1) GI bleed ICD Code: K92.2 - Gastrointestinal hemorrhage, unspecified Status: Acute (2) Anemia ICD Code: D64.9 - Anemia, unspecified Status: Acute Procedures EGD, Colonoscopy Brief History - From Admission 66-year-old male presents to the ED after receiving a call from his doctor's office for a hemoglobin of 5.1. The patient reports he has had black stools intermittently since November and frequently experiences shortness of breath and lightheadedness especially upon standing. He has a colonoscopy scheduled for . The patient has a past medical history significant for severe coronary artery disease, status post multiple angioplasty with stenting, hypertension, hyperlipidemia, peripheral neuropathy and type 2 diabetes mellitus (not on insulin). Lab values significant for a BUN/creatinine of 29/1.41 (unknown baseline). H&H 5.1/16.5. CBC/BMP: 05/16/17 0600 05/16/17 0600 Significant Findings Laboratory Tests Test 05/14/17 11:00 05/15/17 00:27 05/15/17 11:02 05/15/17 19:59 White Blood Count 3.4 TH/MM3 (4.0-11.0) Red Blood Count 2.17 MIL/MM3 (4.50-5.90) 3.17 MIL/MM3 (4.50-5.90) Hemoglobin 5.1 GM/DL (13.0-17.0) 6.1 GM/DL (13.0-17.0) 8.4 GM/DL (13.0-17.0) 8.2 GM/DL (13.0-17.0) Hematocrit 16.5 % (39.0-51.0) 19.0 % (39.0-51.0) 25.2 % (39.0-51.0) 25.3 % (39.0-51.0) Mean Corpuscular Volume 75.8 FL (80.0-100.0) 79.4 FL (80.0-100.0) Mean Corpuscular Hemoglobin 23.4 PG (27.0-34.0) 26.3 PG (27.0-34.0) Mean Corpuscular Hemoglobin Concent 30.9 % (32.0-36.0) Red Cell Distribution Width 23.7 % (11.6-17.2) 22.8 % (11.6-17.2) Platelet Count 83 TH/MM3 (150-450) 90 TH/MM3 (150-450) Monocytes (%) (Auto) 8.3 % (0.0-8.0) Lymphocytes # (Auto) 0.9 TH/MM3 (1.0-4.8) Platelet Estimate LOW (NORMAL) LOW (NORMAL) Activated Partial Thromboplast Time 21.9 SEC (24.3-30.1) Blood Urea Nitrogen 29 MG/DL (7-18) 19 MG/DL (7-18) Creatinine 1.41 MG/DL (0.60-1.30) Random Glucose 347 MG/DL (74-106) 382 MG/DL (74-106) Estimat Glomerular Filtration Rate 50 ML/MIN (>89) 57 ML/MIN (>89) Eosinophils (%) (Auto) 4.2 % (0.0-4.0) Ovalocytes 1+ (NORMAL) Sodium Level 135 MEQ/L (136-145) Test 05/16/17 00:47 05/16/17 06:00 Hemoglobin 7.7 GM/DL (13.0-17.0) 7.8 GM/DL (13.0-17.0) Hematocrit 23.8 % (39.0-51.0) 23.6 % (39.0-51.0) White Blood Count 3.8 TH/MM3 (4.0-11.0) Red Blood Count 3.00 MIL/MM3 (4.50-5.90) Mean Corpuscular Volume 78.6 FL (80.0-100.0) Mean Corpuscular Hemoglobin 25.9 PG (27.0-34.0) Red Cell Distribution Width 23.2 % (11.6-17.2) Platelet Count 88 TH/MM3 (150-450) Eosinophils (%) (Auto) 5.5 % (0.0-4.0) Platelet Estimate LOW (NORMAL) Ovalocytes 1+ (NORMAL) Random Glucose 236 MG/DL (74-106) Alkaline Phosphatase 125 U/L (45-117) Aspartate Amino Transf (AST/SGOT) 54 U/L (15-37) Estimat Glomerular Filtration Rate 66 ML/MIN (>89) Hospital Course Mr. Walden is a 66-year-old male. He was admitted secondary to GI bleed. His history has been recurrent episodes of melena since November of this year. He says he's been having persistent melena since about March. His bleed appears to be a chronic slow bleed. He had an EGD and Colonoscopy this morning. No acute signs of bleeding. Polyp biopsies taken. Cleared by GI for discharge today. Medically stable for discharge home today. Pt Condition on Discharge: Stable Discharge Disposition: Discharge Home Discharge Time: <= 30 minutes Discharge Instructions DIET: Follow Instructions for: Diabetic Diet Activities you can perform: Regular-No Restrictions Follow up Referrals: Appointment for Follow Up - 1 Week with Red Vicente MD Gastroenterology - 1 Week PCP Follow-up - 2 Weeks Continued Medications: Duloxetine DR (Cymbalta DR) 60 Mg Capdr 60 MG PO DAILY, #30 CAP 0 Refills Ezetimibe-Simvastatin (Vytorin) 10-40 Mg Tab 1 TAB PO HS, #30 TAB 0 Refills Glimepiride (Glimepiride) 4 Mg Tab 6 MG PO DAILY for Blood Sugar Management, #30 TAB 0 Refills Take with breakfast or first main meal Losartan-Hydrochlorothiazide (Losartan-Hydrochlorothiazide) 100-12.5 Mg Tab 1 TAB PO DAILY for Blood Pressure Management, #30 TAB 0 Refills Metoprolol Tartrate (Metoprolol Tartrate) 25 Mg Tab 25 MG PO BID, #60 TAB 0 Refills Sitagliptin-Metformin (Janumet) 50-1,000 Mg Tab 1 TAB PO BID for Blood Sugar Management, #60 TAB 0 Refills Discontinued Medications: Aspirin (Aspirin) 81 Mg Chew 81 MG CHEW DAILY, TAB 0 Refills Celecoxib (Celebrex) 200 Mg Cap 200 MG PO DAILY for Pain Management, CAP 0 Refills Angelo Alvarenga MD May 16, 2017 10:52
[2017-05-16 12:00] VITALS: BP 128/67; PULSE 68; RESP 20; TEMP 97.8; O2SAT 96
[2017-05-16] MEDS ORDERED: PROPOFOL 200 MG/20 ML AMP IV ONE (12:00)
[2017-05-16] MEDS ORDERED: LIDOCAINE HCL 1% PF 5 ML SYRINGE OTHER ONE (12:00)
--- NOTE | 2017-05-16 19:31 | EKG ---
Date Performed: 05/15/2017 Time Performed: 21:42:01 PTAGE: 66 years EKG: Sinus rhythm Since previous tracing, no significant change noted NORMAL ECG PREVIOUS TRACING : 01/14/2011 06.16 DOCTOR: Soo Allen Interpretating Date/Time 05/16/2017 19:30:36
[2017-05-18] MEDS ORDERED: THIAMINE HCL 100 MG TAB PO SCH (09:00)
== END 2017-05-16 12:35 | disposition home or self-care (01) | DRG 378 ==
LOC: NEPC 10:13 → NEDA 12:46 → N07B 13:47
PROVIDERS: ADMIT Hospitalist; ATTEND Hospitalist
PROC: 0DBN8ZX Excision of Sigmoid Colon, Via Natural or Artificial Opening Endoscopic, Diagnostic (ICD-10-PCS; principal; 2017-05-14)
PROC: 0DBL8ZX Excision of Transverse Colon, Via Natural or Artificial Opening Endoscopic, Diagnostic (ICD-10-PCS; 2017-05-14)
PROC: 30253N1 (ICD-10-PCS; 2017-05-14)
PROC: 0DB98ZX Excision of Duodenum, Via Natural or Artificial Opening Endoscopic, Diagnostic (ICD-10-PCS; 2017-05-16)
PROC: 0DB68ZX Excision of Stomach, Via Natural or Artificial Opening Endoscopic, Diagnostic (ICD-10-PCS; 2017-05-16)
DX: K92.1 Melena (principal); D61.818 Other pancytopenia; E11.9 Type 2 diabetes mellitus without complications; E78.5 Hyperlipidemia, unspecified; I10 Essential (primary) hypertension; G62.9 Polyneuropathy, unspecified; I25.10 Atherosclerotic heart disease of native coronary artery without angina pectoris; K57.30 Diverticulosis of large intestine without perforation or abscess without bleeding; N28.9 Disorder of kidney and ureter, unspecified; K31.7 Polyp of stomach and duodenum; K63.5 Polyp of colon; Z87.891 Personal history of nicotine dependence; Z95.5 Presence of coronary angioplasty implant and graft; Z74.01 Bed confinement status
CPT/HCPCS: 36430; 76937; 80048; 80053; 82948; 85014; 85018; 85025; 85610; 85730; 86850; 86900; 86901; 86920; 88305; 93005; 96374; C9113; J1815; J1940; J3411; J7030; J7040; J7050; P9016